=== PATIENT | male | born 1960 | race Caucasian/White ===

== ENCOUNTER 2021-11-07 16:07 | Emergency (ER) | payer BC ==
[2021-11-07] MEDS ORDERED: Acetaminophen/oxyCODONE 325-5 MG Tab PO ONE (16:08)
[2021-11-07] MEDS ORDERED: Ondansetron 4 MG Tab.DIS PO ONE (16:08)
[2021-11-07] MEDS: Sodium Chloride 0.9% 1,000 ML IV ONE (16:54)
[2021-11-07] MEDS: Ondansetron 4 MG/2 ML SDV IVPUSH ONE (16:54)
[2021-11-07] MEDS: HYDROmorphone 1 MG/ML Syringe IVPUSH ONE ×2 (16:54→18:06)
[2021-11-07] MEDS: Sodium Chloride 0.9% 10 ML Syringe FLUSH PRN (16:56)
[2021-11-07 17:14] LABS: ANION GAP 14.1 mEq/L (7-13); CHLORIDE,CL 103 mmol/L (98-107); SODIUM,NA 141 mmol/L (136-145)
[2021-11-07 17:26] LABS: ESTIMATED GFR 65 mL/min (>=60)
[2021-11-07] MEDS: Iopamidol 612 MG/ML 100 ML Bottle IVPUSH ONE (18:01)
[2021-11-07] MEDS: HYDROmorphone 1 MG/ML Syringe ONE (18:10)
[2021-11-07 18:23] LABS: CORONAVIRUS COVID-19 NAA POSITIVE (NEGATIVE)
[2021-11-07] MEDS: Tamsulosin 0.4 MG Cap.ER PO ONE (18:31)
[2021-11-07] MEDS: Ketorolac 30 MG/ML SDV IVPUSH ONE (18:31)
[2021-11-07] MEDS: Acetaminophen/oxyCODONE 325-5 MG Tab ONE (19:22)
[2021-11-07] MEDS: Ondansetron 4 MG Tab.DIS ONE (19:22)
== END 2021-11-07 18:55 | disposition home or self-care (01) ==
LOC: DL.ED 16:07
DX: U07.1 COVID-19 (principal); N13.2 Hydronephrosis with renal and ureteral calculous obstruction
CPT/HCPCS: 0240U; 36415; 74177; 80053; 81001; 82150; 83605; 83690; 85025; 86140; 96361; 96374; 96375; 96376; 99284; A9270; J1170; J1885; J2405; J3490; J7030; Q9967

== ENCOUNTER 2025-02-07 16:09 | Emergency (ER) | payer MEDICARE, BC ==
[2025-02-07] MEDS: Dexamethasone 4 MG/ML SDV IM ONE (16:33)
[2025-02-07 16:43] LABS: BASOPHILS PERCENT AUTO 0.4 % (0.0-1.0); EOSINOPHILS PERCENT AUTO 1.8 % (1.0-3.0); LYMPHOCYTES PERCENT AUTO 37.8 % (20.5-50.1); MONOCYTES PERCENT AUTO 9.4 % (2-8); NEUTROPHILS PERCENT AUTO 50.6 % (42.2-75.2); PLATELET COUNT,PLT 331 10^3/uL (150-450); RED BLOOD CELL COUNT 4.72 10^6/uL (4.6-6.2); WHITE BLOOD CELL COUNT,WBC 7.2 10^3/uL (5.0-10.0)
[2025-02-07 16:53] LABS: A/G RATIO 0.9; ALANINE AMINOTRANSFERASE,ALT 28 U/L (16-63); ASPARTATE AMNIOTRANSFERASE,AST 27 U/L (15-37); BILIRUBIN TOTAL 0.8 mg/dL (0.2-1.0); BLOOD UREA NITROGEN,BUN 12 mg/dL (7-18); CARBON DIOXIDE,CO2 30 mmol/L (21-32); CHLORIDE,CL 101 mmol/L (98-107); CREATININE 0.87 mg/dL (0.70-1.30); EST CRCL DRUG DOSING (CG) 86.24 mL/min; GLUCOSE RANDOM 116 mg/dL (70-99); INR 1.0 (0.9-1.2); POTASSIUM,K 3.8 mmol/L (3.5-5.1); PROTEIN TOTAL,TP 7.9 g/dL (6.4-8.2); PTT,PARTIAL THROMBOPLSTIN TIME 23.2 SEC (22.0-34.0); SODIUM,NA 138 mmol/L (136-145)
[2025-02-07 16:54] LABS: MONONUCLEOSIS SCREEN NEGATIVE
[2025-02-07 16:56] LABS: ESTIMATED GFR 95 mL/min (>=60)
[2025-02-07 17:00] LABS: LACTIC ACID 1.3 mmol/L (0.4-2.0)
[2025-02-07] MEDS: Iopamidol 612 MG/ML 100 ML Bottle IVPUSH ONE (17:18)
[2025-02-07] MEDS: EPINEPHrine 1 MG/ML SDV IM ONE (19:12)
[2025-02-07] MEDS: diphenhydrAMINE 50 MG/ML SDV IVPUSH ONE (21:42)
== END 2025-02-07 21:20 | disposition home or self-care (01) ==
LOC: DL.ED 16:09
DX: T78.3XXA Angioneurotic edema, initial encounter (principal); Z79.899 Other long term (current) drug therapy
CPT/HCPCS: 36415; 70360; 70491; 80053; 83605; 85025; 85610; 85730; 86140; 86308; 87081; 87430; 96372; 96374; 96375; 99284; 99284-25; J0169; J1100; J1200; J1308; Q9967